=== PATIENT | female | born 2000 | race Caucasian/White ===

== ENCOUNTER 2021-04-04 10:07 | Inpatient (IN) | payer OTHER ==
[~2021-04-04] VITALS: Ht 154.9 cm; Wt 80.3 kg
[2021-04-04] MEDS ORDERED: LACT. RINGERS/OXYTOCIN 20UNITS 500 ML IV ONE ×2 (12:15→12:45)
[2021-04-04] MEDS ORDERED: BUTORPHANOL TARTRATE 2 MG/1 ML VIAL IV PRN (12:15)
[2021-04-04] MEDS ORDERED: LIDOCAINE 2%HCL (LOCAL ANESTH.) INJ 20ML MDV IJ PRN (12:15)
[2021-04-04 12:49] LABS: Basophils # (auto) 0 10 ^3/uL (0-0.2); Basophils % (auto) 0.6 % (0.0-2.0); Eosinophils # (auto) 0.1 10 ^3/uL (0-0.8); Eosinophils % (auto) 0.7 % (0.0-7.0); Hematocrit 37.8 % (36.0-46.0); Hemoglobin 12.8 g/dL (12.2-16.2); Lymphocytes # (auto) 2.2 10 ^3/uL (0.4-5.4); Lymphocytes % (auto) 26.6 % (10.0-50.0); Mean Corpuscular Hemoglobin 29.4 pg (28.0-32.0); Mean Corpuscular Hgb Conc. 33.8 g/dL (32.0-36.0); Mean Corpuscular Volume 87.2 fL (80.0-100.0); Monocytes # (auto) 0.5 10 ^3/uL (0-1.3); Monocytes % (auto) 6.3 % (0.0-12.0); Neutrophils # (auto) 5.4 10 ^3/uL (1.6-8.6); Neutrophils % (auto) 65.8 % (37.0-80.0); Nucleated Red Blood Cells % 0.2 %; Red Blood Cells 4.33 10^6/uL (4.0-5.20); Red Cell Distribution Width 14.4 % (11.8-14.3); White Blood Cell 8.1 10^3/uL (4.4-10.8)
[2021-04-04 12:53] LABS: Urine Bacteria FEW /hpf (None Seen); Urine Blood Negative /uL (Negative); Urine Mucus FEW (None Seen); Urine Specific Gravity 1.016 (1.001-1.035); Urine WBC 30 /hpf (0 - 5)
[2021-04-04 13:02] LABS: INR 0.94 (0.9-1.15); Partial Thromboplastin Time 26.1 sec (23.6-33.0)
[2021-04-04 13:37] LABS: Albumin 3.1 g/dL (3.4-5.0); Calcium 8.9 mg/dL (8.5-10.1); Potassium 3.8 mmol/L (3.5-5.1)
[2021-04-04 13:38] LABS: Amphetamine Screen, Urine NEGATIVE (NEGATIVE); Barbiturate Scree,Urine NEGATIVE (NEGATIVE); Benzodiazephine Screen, Urine NEGATIVE (NEGATIVE); Cannabinoid Screen, Urine NEGATIVE (NEGATIVE); Cocaine Screen, Urine NEGATIVE (NEGATIVE); Opiate Scree,Urine NEGATIVE (NEGATIVE); Phencyclidine Screen, Urine NEGATIVE (NEGATIVE)
[2021-04-04 13:42] LABS: BUN/Creatinine Ratio 6.8; Bilirubin, Total 0.2 mg/dL (0.2-1.0); Total Protein 6.9 g/dL (6.4-8.2)
[2021-04-04] MEDS: LACTATED RINGER'S 1,000 ML IV SCH ×2 (13:57→17:10)
[2021-04-04] MEDS ORDERED: ePHEDrine SULFATE 50 MG/ML AMP IV ONE (14:30)
[2021-04-04] MEDS ORDERED: NALOXONE HCL 0.4 MG/ML VIAL IV ONE (14:30)
[2021-04-04] MEDS ORDERED: LACTATED RINGER'S 1,000 ML IV ONE (14:30)
[2021-04-04] MEDS ORDERED: fentaNYL CITRATE 100 MCG/2 ML VL EPI ONE (14:30)
[2021-04-04] MEDS ORDERED: ROPIVACAINE HCL 200 ML EPI SCH (14:30)
[2021-04-04] MEDS ORDERED: LIDOCAINE HCL 2 %PF INJ 10ML AMP IJ ONE (14:30)
[2021-04-04] MEDS ORDERED: LACT. RINGERS/OXYTOCIN 20UNITS 1,000 ML IV SCH (20:45)
[2021-04-04] MEDS: PROMETHAZINE HCL 25 MG/ML 1ML IV PRN (22:06)
[2021-04-04] MEDS: BUTORPHANOL TARTRATE 2 MG/1 ML VIAL IV PRN (22:07)
[2021-04-05] MEDS: LACTATED RINGER'S 1,000 ML IV SCH (01:26)
[2021-04-05] MEDS: PROMETHAZINE HCL 25 MG/ML 1ML IV PRN (01:36)
[2021-04-05] MEDS: BUTORPHANOL TARTRATE 2 MG/1 ML VIAL IV PRN (01:38)
[2021-04-05] MEDS ORDERED: METHYLERGONOVINE MALEATE 0.2 MG/ML AMP IM ONE (05:22)
[2021-04-05] MEDS ORDERED: LIDOCAINE 2%HCL (LOCAL ANESTH.) INJ 20ML MDV ONE (05:31)
[2021-04-05] MEDS ORDERED: fentaNYL CITRATE 100 MCG/2 ML VL IV ONE (06:00)
[2021-04-05 06:06] LABS: RPR Non Reactive (Non Reactive)
[2021-04-05] MEDS ORDERED: ONDANSETRON ODT 4 MG TAB PO PRN (07:30)
[2021-04-05] MEDS ORDERED: ACETAMINOPHEN 325 MG TAB PO PRN (07:30)
[2021-04-05] MEDS: IBUPROFEN 800 MG TAB PO SCH ×2 (08:47→18:00)
[2021-04-05 11:16] VITALS: BP 114/71
[2021-04-05] MEDS: WITCH HAZEL-GLYCERIN PAD TOP PRN (11:50)
[2021-04-05] MEDS: DERMOPLAST 60ML BOTTLE TOP PRN (11:50)
[2021-04-05] MEDS: PHISODERM TOP SOLN 240ML BTL TOP PRN (11:50)
[2021-04-05] MEDS ORDERED: PREN27TA7 OR (11:54)
[2021-04-05 15:06] VITALS: BP 107/67
[2021-04-05] MEDS: IBUPROFEN 600 MG TAB PO PRN (17:50)
[2021-04-05 19:16] VITALS: BP 115/69
[2021-04-05] MEDS ORDERED: DOCUSATE SOD 100 MG CAP PO SCH (22:00)
[2021-04-05 22:54] VITALS: BP 104/64
[2021-04-06] MEDS: IBUPROFEN 800 MG TAB PO SCH ×3 (00:01→12:04)
[2021-04-06 02:54] VITALS: BP 117/64
[2021-04-06] MEDS: IBUPROFEN 600 MG TAB PO PRN (05:39)
[2021-04-06 07:10] VITALS: BP 124/63
[2021-04-06 11:02] VITALS: BP 124/63
[2021-04-06] MEDS: DERMOPLAST 60ML BOTTLE TOP PRN (12:03)
[2021-04-06] MEDS: WITCH HAZEL-GLYCERIN PAD TOP PRN (12:03)
[2021-04-06] MEDS: PHISODERM TOP SOLN 240ML BTL TOP PRN (12:04)
[2021-04-06 15:00] VITALS: BP 100/58
[2021-04-06] MEDS ORDERED: TETANUS-DIPTH-ACEL PERTUSSIS 0.5ML SYR Tdap IM ONE (17:00)
[2021-04-06 18:00] VITALS: BP 107/64
== END 2021-04-06 18:56 | disposition home or self-care (01) | DRG 807 ==
LOC: LDRP 10:07 → OBSVTOIN 12:12
PROVIDERS: ADMIT Obstetrics & Gynecology; ATTEND Obstetrics & Gynecology
PROC: 0KQM0ZZ Repair Perineum Muscle, Open Approach (ICD-10-PCS; principal; 2021-04-05)
PROC: 10E0XZZ Delivery of Products of Conception, External Approach (ICD-10-PCS; 2021-04-05)
PROC: 3E0234Z Introduction of Serum, Toxoid and Vaccine into Muscle, Percutaneous Approach (ICD-10-PCS; 2021-04-06)
DX: O70.1 Second degree perineal laceration during delivery (principal); Z37.0 Single live birth; Z3A.39 39 weeks gestation of pregnancy; Z20.822 Contact with and (suspected) exposure to COVID-19; Z23 Encounter for immunization
CPT/HCPCS: 36415; 59025; 59409; 80053; 80307; 81001; 81002; 85025; 85610; 85730; 86592; 86850; 86900; 86901; 87426; 90715; 94760; 94762; 96360; 96361; 96365; 96366; 96372; 96374; 96375; G0378; J2590

== ENCOUNTER 2021-07-16 22:14 | Emergency (ER) | payer OTHER ==
[~2021-07-16] VITALS: Ht 157.5 cm; Wt 66.2 kg
[~2021-07-16 22:14] MED LIST: PREN27TA7 OR
[2021-07-16 23:29] LABS: Eosinophils # (auto) 0 10 ^3/uL (0-0.8); Lymphocytes # (auto) 1.3 10 ^3/uL (0.4-5.4); Monocytes # (auto) 0.9 10 ^3/uL (0-1.3)
[2021-07-16 23:31] LABS: Basophils # (auto) 0.1 10 ^3/uL (0-0.2); Basophils % (auto) 0.5 % (0.0-2.0); Eosinophils % (auto) 0.3 % (0.0-7.0); Hemoglobin 11.6 g/dL (12.2-16.2); Mean Corpuscular Hemoglobin 24.5 pg (28.0-32.0); Mean Corpuscular Hgb Conc. 32.2 g/dL (32.0-36.0); Monocytes % (auto) 7.6 % (0.0-12.0); Neutrophils # (auto) 9.8 10 ^3/uL (1.6-8.6); Neutrophils % (auto) 80.6 % (37.0-80.0); Red Blood Cells 4.74 10^6/uL (4.0-5.20); White Blood Cell 12.1 10^3/uL (4.4-10.8)
[2021-07-16 23:36] LABS: Urine Bacteria NONE SEEN /hpf (None Seen); Urine Blood 3+ /uL (Negative); Urine Specific Gravity 1.013 (1.001-1.035); Urine WBC 30 /hpf (0 - 5)
[2021-07-16 23:47] LABS: BUN/Creatinine Ratio 12.8; Calcium 9.2 mg/dL (8.5-10.1); Potassium 3.9 mmol/L (3.5-5.1)
[2021-07-16 23:58] LABS: Bilirubin, Total 0.3 mg/dL (0.2-1.0)
[2021-07-17] MEDS ORDERED: cefTRIAXone 1GM/50ML D5W 50 ML IV ONE (04:45)
[2021-07-17 08:00] VITALS: BP 106/71
[2021-07-17] MEDS ORDERED: CEPH-509 PO (08:58)
== END 2021-07-17 09:47 | disposition home or self-care (01) ==
LOC: ER 22:14
DX: N39.0 Urinary tract infection, site not specified (principal); N83.201 Unspecified ovarian cyst, right side
CPT/HCPCS: 36415; 74176; 76856; 80053; 81001; 81025; 83690; 85025; 96365; 99285; J0696; J7030